=== PATIENT | female | born 1995 | race Caucasian/White ===

== ENCOUNTER 2017-02-12 14:02 | Emergency (ER) | payer OTHER ==
[~2017-02-12] VITALS: Ht 162.6 cm; Wt 67.0 kg
[~2017-02-12 14:02] MED LIST: FAMO20TA11 PO; FLNIN NAE; SNG10 PO; VITAMIN
[2017-02-12 14:05] VITALS: TEMP 36.8; Ht 162.6 cm; Wt 67.0 kg
[2017-02-12] MEDS ORDERED: CEFTRIAXONE SOD INJ 1 GM ADDVIAL IV STA (14:40)
[2017-02-12] MEDS ORDERED: KETOROLAC TROMETHAMINE 30 MG/ML VIAL IV STA (14:44)
[2017-02-12] MEDS ORDERED: BCPILLS PO (14:44)
[2017-02-12] MEDS ORDERED: CLINDAMYCIN IV 900 MG in DEXTROSE 5% 100ML 100 ML IV ONE (14:45)
[2017-02-12 15:26] LABS: BASO % 0.1 %; BASO ABS # 0.01 K/uL (0-0.2); COMPLETE YES; EOS % 2.7 %; IG% 0.1 %; LYMPH % 12.8 %; LYMPH ABS # 0.99 K/uL (1.2-3.4); MEAN CORPUSCULAR HEMOGLOBIN 31.1 pg (25-34); MEAN CORPUSCULAR HGB CONC 35.3 g/dl (32-36); MEAN PLATELET VOLUME 9.2 fL (7.4-10.4); MONO % 9.8 %; NEUT % 74.5 %; PLATELET COUNT 241 K/uL (130-400); RED BLOOD COUNT 4.09 M/uL (4.2-5.4); WHITE BLOOD COUNT 7.73 K/uL (4.8-10.8)
[2017-02-12 15:43] LABS: BUN/CREATININE RATIO 14.4 (10-20); CALCIUM 8.8 mg/dl (8.5-10.1); CREATININE 0.64 mg/dl (0.60-1.20); POTASSIUM 3.6 mmol/L (3.5-5.1)
[2017-02-12] MEDS ORDERED: CEPH500C PO (16:23)
[2017-02-12] MEDS ORDERED: SULF800T23 PO (16:23)
[2017-02-12 16:56] VITALS: BP 126/74; PULSE 97; O2SAT 98
--- NOTE | 2017-02-12 17:48 | EMERGENCY ROOM VISIT NOTE ---
History Report prepared by Chai: Tanvi Sousa Under the Supervision of: Dr. Edson Ivan D.O. First contact with patient: 14:26 Chief Complaint: ANKLE PAIN Stated Complaint: SWOLLEN LEFT ANKLE History of Present Illness The patient is a 21 year old female who presents to the Emergency Room with complaints of worsening left ankle pain for the past two days. The patient states that she got a blister on the back of her left ankle from a pain for new shoes. Two days ago she noticed some redness on her left ankle and that the ankle was swollen. She woke up in the middle of the night with fevers, chills, generalized body aches, left ankle pain, and left hip pain. She was taking ibuprofen for her symptoms and laid in bed all day. Yesterday the patient went to [facility]. She was given a shot of Rocephin yesterday and placed on Bactrim today. She was told to follow-up with any worsening redness. The patient states that today her redness has extended further beyond the pen simons drawn at [facility] yesterday. Her ankle is also more swollen than it was. She has taken one dose of the Bactrim at this point. The patient rates her current pain as a 5 /10 in severity. She denies any recent tick bites. Pt denies headache, chest pain, shortness of breath, nausea, vomiting, diarrhea, and urinary symptoms. Source of History: patient Onset: 2 days ago Position: ankle (left) Symptom Intensity: 5/10 Quality: other (redness/swelling) Timing: worsening Modifying Factors (Relieving): ibuprofen Associated Symptoms: + fevers, + chills, No headache, No chest pain, No SOB , No nausea, No vomiting, No diarrhea, No urinary symptoms Note: Pt notes generalized body aches. Pt denies recent tick bites. Review of Systems See HPI for pertinent positives & negatives. A total of 10 systems reviewed and were otherwise negative. Past Medical & Surgical Medical Problems: (1) No significant active problems Family History FH: cancer Hypertension Social History Smoking Status: Never Smoker Smokeless Tobacco Use: No Alcohol Use: none Drug Use: none Marital Status: single Housing Status: lives with family Occupation Status: [employer] Current/Historical Medications Scheduled Control Pills ( Control Pills), 1 TAB PO DAILY Cephalexin Monohydrate (Keflex), 500 MG PO QID Sulfamethoxazole-Trimethoprim (Bactrim Ds 800MG/160MG), 1 TAB PO BID Allergies Coded Allergies: Molds & Smuts (Unverified Allergy, Intermediate, ., 02/12/17) Physical Exam Vital Signs Date Time Temp Pulse Resp B/P (MAP) Pulse Ox O2 Delivery O2 Flow Rate FiO2 02/12/17 16:56 97 18 126/74 98 02/12/17 15:13 78 18 110/66 100 Room Air 02/12/17 14:05 36.8 90 18 122/73 99 Room Air Physical Exam GENERAL: alert, sitting up in bed, well appearing, well nourished, no distress, non-toxic EYE EXAM: normal conjunctiva OROPHARYNX: no exudate, no erythema, lips, buccal mucosa, and tongue normal and mucous membranes are moist NECK: supple, no nuchal rigidity, no adenopathy, non-tender LUNGS: Clear to auscultation. Normal chest wall mechanics HEART: no murmurs, S1 normal and S2 normal ABDOMEN: abdomen soft, non-tender, normo-active bowel sounds, no masses, no rebound or guarding. BACK: Back is symmetrical on inspection and there is no deformity, no midline tenderness, no CVA tenderness. SKIN: no rashes and no bruising UPPER EXTREMITIES: upper extremities are grossly normal. LOWER EXTREMITIES: Full active and passive ROM of the left hip, knee, and ankle. No tenderness with axial loading of ankle joint. Erythema over the left ankle with a small ulcer in the middle of the Achilles with no fluctuance, skin is warm and tender. BEDSIDE ULTRASOUND: No abscess appreciated but cobblestoning seen throughout lateral aspect of left foot through ankle NEURO EXAM: Normal sensorium, cranial nerves II-XII grossly intact, normal speech, no gross weakness of arms, no gross weakness of legs. Medical Decision & Procedures ER Provider Diagnostic Interpretation: Bedside FAST US of the left ankle reveals cobblestoning without focal abscess. Laboratory Results 02/12/17 14:55 Red Blood Count 4.09, Mean Corpuscular Volume 88.0, Mean Corpuscular Hemoglobin 31.1, Mean Corpuscular Hemoglobin Concent 35.3, Mean Platelet Volume 9.2, Neutrophils (%) (Auto) 74.5, Lymphocytes (%) (Auto) 12.8, Monocytes (%) (Auto) 9.8, Eosinophils (%) (Auto) 2.7, Basophils (%) (Auto) 0.1, Neutrophils # (Auto) 5.75, Lymphocytes # (Auto) 0.99, Monocytes # (Auto) 0.76, Eosinophils # (Auto) 0.21, Basophils # (Auto) 0.01 02/12/17 14:55 Test 02/12/17 14:55 White Blood Count 7.73 K/uL (4.8-10.8) Red Blood Count 4.09 M/uL (4.2-5.4) Hemoglobin 12.7 g/dL (12.0-16.0) Hematocrit 36.0 % (37-47) Mean Corpuscular Volume 88.0 fL (80-100) Mean Corpuscular Hemoglobin 31.1 pg (25-34) Mean Corpuscular Hemoglobin Concent 35.3 g/dl (32-36) Platelet Count 241 K/uL (130-400) Mean Platelet Volume 9.2 fL (7.4-10.4) Neutrophils (%) (Auto) 74.5 % Lymphocytes (%) (Auto) 12.8 % Monocytes (%) (Auto) 9.8 % Eosinophils (%) (Auto) 2.7 % Basophils (%) (Auto) 0.1 % Neutrophils # (Auto) 5.75 K/uL (1.4-6.5) Lymphocytes # (Auto) 0.99 K/uL (1.2-3.4) Monocytes # (Auto) 0.76 K/uL (0.11-0.59) Eosinophils # (Auto) 0.21 K/uL (0-0.5) Basophils # (Auto) 0.01 K/uL (0-0.2) RDW Standard Deviation 38.4 fL (36.4-46.3) RDW Coefficient of Variation 11.9 % (11.5-14.5) Immature Granulocyte % (Auto) 0.1 % Immature Granulocyte # (Auto) 0.01 K/uL (0.00-0.02) Anion Gap 5.0 mmol/L (3-11) Est Creatinine Clear Calc Drug Dose 132.0 ml/min Estimated GFR () 148.9 Estimated GFR (Non- 128.5 BUN/Creatinine Ratio 14.4 (10-20) Calcium Level 8.8 mg/dl (8.5-10.1) Laboratory results per my review. Medications Administered Medications (Trade) Dose Ordered Sig/Soham Route Start Time Stop Time Status Last Admin Dose Admin Ceftriaxone Sodium (Rocephin Inj) 1 gm NOW STAT IV 02/12/17 14:40 02/12/17 14:41 DC 02/12/17 15:12 1 GM Clindamycin Phosphate 900 mg/ Dextrose 106 ml @ 100 mls/hr ONE ONCE IV 02/12/17 14:45 02/12/17 15:48 DC 02/12/17 15:51 100 MLS/HR Ketorolac Tromethamine (Toradol Inj) 30 mg NOW STAT IV 02/12/17 14:44 02/12/17 14:45 DC 02/12/17 15:12 30 MG ED Course ED COURSE: Vital signs were reviewed and showed normal vitals The patients medical record was reviewed The above diagnostic studies were performed and reviewed. ED treatments and interventions as stated above. 1426: The patient was evaluated in room A3. A complete history and physical examination was performed. 1433: At this time I performed a bedside FAST US. Please see above for my findings. 1440: Rocephin 1 gm IV 1444: Toradol 30 mg IV 1445: Clindamycin Phosphate 900 mg/Dextrose 106 ml @ 100 mls/hr IV 1627: Upon reevaluation, the patient is feeling better and resting comfortably. I discussed my findings with the patient and she understands and agrees with the treatment plan. Based on the patients age, coexisting illnesses, exam and lab findings the decision to treat as an outpatient was made. The patient remained stable while under my care. The patient appeared well at the time of discharge. Medical Decision Differential diagnosis includes etiologies such as cellulitis, abscess, MRSA infection, DVT, necrotizing fasciitis, dermatitis, drug eruption, as well as others were entertained. Patient is a 21-year-old female who presents the ER for erythema on the lateral aspect of her left foot. She notes it started from an ulcer on the back of her heel from the she is. Does have chills but denies fevers. No other medical prongs. No diabetes. She is given 1 dose of Rocephin yesterday and 1 dose of Bactrim today. She has erythema has worsened. Labs including CBC and BMP were unremarkable. No signs of sepsis. No fevers. She is not tachycardic. The redness had worsened from the line previously drawn however I do not believe that she was treated appropriately. I gave her a dose of Rocephin and clindamycin. Following a prolonged conversation patient preferred to go home which I felt was reasonable rather than admission. I feels that this may be turned around with oral Keflex and Bactrim taken routinely as opposed to one dose. I nathaniel a new line and set up with PCP appointment for her to be seen tomorrow. I do favor a likely worsen over the next 24 hours. I informed her that at 24 hours and should not worsen and should start improving by 48 hours. Patient and mom were happy with this plan. Discussed with Pt concerning signs and symptoms to watch out for. Pt was instructed to follow up with their PCP and discussed with the patient their option to return to the ED at anytime for persistent or worsening symptoms. The appropriate anticipatory guidance and out- patient management, including indications for return to the emergency department , were explained at length to the patient and understood. Medication Reconcilliation Current Medication List: was personally reviewed by me Blood Pressure Screening Patient's blood pressure: Normal blood pressure Impression Primary Impression: Cellulitis Scribe Attestation The scribe's documentation has been prepared under my direction and personally reviewed by me in its entirety. I confirm that the note above accurately reflects all work, treatment, procedures, and medical decision making performed by me. Departure Information Dispostion Home / Self-Care Prescriptions Cephalexin Monohydrate (Keflex) 500 Mg Cap 500 MG PO QID for 10 Days, #40 CAP Prov: Edson Ivan, DO 02/12/17 Sulfamethoxazole-Trimethoprim (Bactrim Ds 800MG/160MG) 1 Tab Tab 1 TAB PO BID, #20 TAB Prov: Edson Ivan, DO 02/12/17 Referrals Camille Garg D.OShaun (PCP) Forms HOME CARE DOCUMENTATION FORM, IMPORTANT VISIT INFORMATION Patient Instructions Cellulitis - [facility], [facility] [place] Additional Instructions Please follow up with your primary care doctor with in the next 24 hours. Any worsening of your symptoms, please return to the ED immediately. This includes any fevers greater than 100.4, increased redness streaking up her leg, inability to range of motion your ankle, persistent nausea, vomiting, unable to eat or drink, or any other concerning signs or symptoms from your standpoint. Please take your antibiotics as prescribed Problem Qualifiers Primary Impression: Cellulitis Site of cellulitis: extremity Site of cellulitis of extremity: lower extremity Laterality: left Qualified Codes: L03.116 - Cellulitis of left lower limb
== END 2017-02-12 17:14 | disposition home or self-care (01) ==
LOC: C.EDB 14:03 → C.EDA 17:14
DX: L03.116 Cellulitis of left lower limb (principal); Z82.49 Family history of ischemic heart disease and other diseases of the circulatory system